=== PATIENT | female | born 1995 | race Caucasian/White ===

== ENCOUNTER → 2021-05-30 13:41 | Outpatient (BNVA) | payer OTHER, SELFPAY | PROVIDERS: PCP Internal Medicine; Visit Provider Advanced Practice Midwife ==

== ENCOUNTER → 2021-06-02 08:54 | Outpatient (BNVA) | payer OTHER, SELFPAY | PROVIDERS: PCP Internal Medicine; Visit Provider Advanced Practice Midwife | DX: Z30.42 Encounter for surveillance of injectable contraceptive (principal) | CPT/HCPCS: 96372 ==

== ENCOUNTER → 2021-08-26 08:54 | Outpatient (BNVA) | payer OTHER, SELFPAY | PROVIDERS: PCP Internal Medicine; Visit Provider Advanced Practice Midwife | DX: Z30.42 Encounter for surveillance of injectable contraceptive (principal) | CPT/HCPCS: 96372; 99211 ==

== ENCOUNTER 2021-10-23 11:18 | Outpatient (REF) | payer OTHER, SELFPAY ==
[2021-10-23 11:51] LABS: MANUAL DIFF FLAG NO
[2021-10-23 12:19] LABS: Basophils Absolute Auto 0.1 X10*3/uL (0.0-0.2); Basophils Percent Auto 0.7 % (0-2); Eosinophils Absolute Auto 0.1 X10*3/uL (0.0-0.4); Eosinophils Percent Auto 1.6 % (0-4); Hematocrit 43.4 % (37.0-47.0); Hemoglobin 14.6 g/dl (12.0-16.0); Imm Gran Abs Auto 0.02 X10*3/uL (0.00-0.03); Imm Gran Pct Auto 0.3 % (0.0-0.4); Lymphocytes Absolute Auto 2.6 X10*3/uL (1.2-4.9); Lymphocytes Percent Auto 34.8 % (20-40); Mean Corpuscular HGB Conc 33.6 g/dl (31.0-35.0); Mean Corpuscular Hemoglobin 31.3 pg (27.0-33.0); Mean Corpuscular Volume 92.9 fL (80.0-98.0); Mean Platelet Volume 8.9 fL (9.4-12.3); Monocytes Absolute Auto 0.7 X10*3/uL (0.1-1.2); Monocytes Percent Auto 9.6 % (2-11); Platelet Count 430 X10*3/uL (160-400); Red Blood Count 4.67 X10*6/uL (4.20-5.50); Red Cell Distribution Width 12.5 % (11.0-16.0); White Blood Count 7.5 X10*3/uL (4.8-10.8)
[2021-10-23 12:49] LABS: Alanine Aminotransferase 38 U/L (0-31); Albumin Level 4.2 g/dL (3.5-5.0); Alkaline Phosphatase 63 U/L (39-117); Anion Gap 10 (12-20); Aspartate Amino Transferase 21 U/L (5-31); Bilirubin Total 0.7 mg/dL (0.0-1.0); Blood Urea Nitrogen 8 mg/dL (9-16); Calcium 9.1 mg/dL (8.4-10.2); Carbon Dioxide 23 mmol/L (22-29); Chloride 110 mmol/L (96-108); Cholesterol 144 mg/dL; Estimated Glomerular Filt Rate > 60; Glucose Fasting 83 mg/dL (60-99); HDL Cholesterol 47 mg/dL; LDL Cholesterol Calculated 87 mg/dl; Potassium 4.3 mmol/L (3.3-5.1); Sodium 139 mmol/L (135-145); Total Protein 6.9 g/dL (6.5-8.0); Triglycerides 52 mg/dL
[2021-10-23 13:04] LABS: Thyroid Stimulating Hormone 1.76 uIU/mL (0.32-4.0)
[2021-10-27 13:21] LABS: Vitamin D 25-OH, D2 5 ng/mL; Vitamin D 25-OH, D3 23 ng/mL; Vitamin D 25-OH, Total 28 ng/mL (30-100)
== END 2021-10-23 11:19 | disposition home or self-care (01) ==
LOC: HO.LAB 11:18
PROVIDERS: PCP Internal Medicine; Visit Provider Internal Medicine
DX: E66.01 Morbid (severe) obesity due to excess calories (principal); E55.9 Vitamin D deficiency, unspecified; E78.5 Hyperlipidemia, unspecified; D64.9 Anemia, unspecified
CPT/HCPCS: 36415; 80053; 80061; 82306; 84443; 85025

== ENCOUNTER → 2021-11-17 09:31 | Outpatient (BNVA) | payer OTHER, SELFPAY | PROVIDERS: Visit Provider Advanced Practice Midwife | DX: Z30.42 Encounter for surveillance of injectable contraceptive (principal) | CPT/HCPCS: 96372; 99211 ==

== ENCOUNTER 2022-02-11 09:29 | Outpatient (REF) | payer OTHER, SELFPAY ==
[2022-02-11 15:15] LABS: CT PCR NOT DETECTED (Not Detect.); NG PCR NOT DETECTED (Not Detect.)
[2022-02-12 11:09] LABS: BV Int Neg Control Negative (Negative); BV Int Pos Control Positive (Positive)
== END 2022-02-11 09:30 | disposition home or self-care (01) ==
LOC: HO.LAB 09:29
PROVIDERS: PCP Internal Medicine; Visit Provider Advanced Practice Midwife
DX: Z01.419 Encounter for gynecological examination (general) (routine) without abnormal findings (principal); Z30.42 Encounter for surveillance of injectable contraceptive; Z20.2 Contact with and (suspected) exposure to infections with a predominantly sexual mode of transmission
CPT/HCPCS: 87480; 87491; 87510; 87591; 87660; 88142; 96372

== ENCOUNTER → 2022-05-06 08:59 | Outpatient (BNVA) | payer OTHER, SELFPAY | PROVIDERS: PCP Internal Medicine; Visit Provider Advanced Practice Midwife | DX: Z30.42 Encounter for surveillance of injectable contraceptive (principal) | CPT/HCPCS: 96372; 99211 ==

== ENCOUNTER 2022-06-08 14:58 | Outpatient (REF) | payer OTHER, SELFPAY ==
[2022-06-10 22:36] LABS: TS Negative Control Passed; TS Panel A 1; TS Panel B 0; TS Positive Control Passed; TSpotTB Negative (Negative)
== END 2022-06-08 14:59 | disposition home or self-care (01) ==
LOC: HO.LAB 14:58
PROVIDERS: PCP Internal Medicine; Visit Provider Internal Medicine
DX: Z11.1 Encounter for screening for respiratory tuberculosis (principal)
CPT/HCPCS: 36415; 86481

== ENCOUNTER 2022-07-10 15:40 | Outpatient (REF) | payer OTHER, SELFPAY ==
--- NOTE | ~2022-07-10 | XR_ITS ---
EXAMINATION: XR ANKLE, RIGHT CLINICAL INFORMATION: Pain COMPARISON: None TECHNIQUE: AP, lateral, and mortise views of the right ankle. FINDINGS: The bones and soft tissues are notable for early calcaneal plantar spurring.. No fracture. Alignment is anatomic. Joint spaces are maintained. No joint effusion. XR/XR ankle RT min 3V IMPRESSION: Calcaneal plantar spurring consistent with heel pain syndrome.
== END 2022-07-10 15:41 | disposition home or self-care (01) ==
LOC: HO.HMGCX 15:40
PROVIDERS: PCP Internal Medicine
DX: M25.571 Pain in right ankle and joints of right foot (principal)
CPT/HCPCS: 73610

== ENCOUNTER → 2022-07-28 09:08 | Outpatient (BNVA) | payer OTHER, SELFPAY | PROVIDERS: PCP Internal Medicine; Visit Provider Advanced Practice Midwife | DX: Z30.42 Encounter for surveillance of injectable contraceptive (principal) | CPT/HCPCS: 96372 ==

== ENCOUNTER 2022-08-28 07:53 | Outpatient (REF) | payer OTHER, SELFPAY | END 2022-08-28 07:54 | disposition home or self-care (01) | LOC: HO.HOSX 07:53 | PROVIDERS: Visit Provider Physician Assistant | DX: Z13.89 Encounter for screening for other disorder (principal) ==

== ENCOUNTER → 2022-10-13 08:57 | Outpatient (BNVA) | payer OTHER, SELFPAY | PROVIDERS: Visit Provider Advanced Practice Midwife | DX: Z30.42 Encounter for surveillance of injectable contraceptive (principal) | CPT/HCPCS: 96372 ==

== ENCOUNTER 2022-10-20 17:00 | Outpatient (RCR) | payer OTHER, SELFPAY ==
--- NOTE | 2022-09-21 17:09 | MHC.PT.EP ---
[facility] [place] Office [place] Office [place] Office [address] Caro [address] [phone] F: [phone] F: [phone] F: [phone] F: [phone] Physical Therapy Plan of Care Date of Evaluation: Date of Surgery: Diagnosis: R ankle sprain Assessment: Patient is pleasant 27 y.o female who was referred to PT by BEL Martinez with Dx of R ankle sprain. Her PT Dx is consistent with R ankle sprain, also involved peroneal tendon and achilles tendon. Her current impairments include; pain, limited ROM, weakness, instability, antalgic gait. Her functional limitations include difficulty with prolonged walking, walking on unlevel surfaces, descending stairs and performing a squat. She will benefit from course of skilled PT to address aforementioned impairments and functional limitations to meet goals. Frequency and Duration: The patient will be seen 1x/week for 4 weeks Short Term Goals: 2 weeks Patient demonstrates consistency and independence with HEP to self manage symptoms, reduce pain 2/10. Patient presents with increased R ankle DF AROM 0 degrees without pain to demonstrates normalized heel to toe gait pattern. Care Home Goals: 4 weeks Patient presents with increased R ankle DF 5 degrees to be able to descend stairs reciprocally. Patient presents with increased R ankle inversion/eversion 5/5 to be able to ambulate uneven surfaces without symptoms. Treatment Plan: Modalities to reduce pain, spasms and effusion. Manual therapy to restore motion and function. Therapeutic exercise to improve strength and flexibility. Neuromuscular re-education for posture and balance. Therapeutic activities to return to functional activities of daily living. Electronically signed by: Marjorie Rashid, PT, DPT Please sign and return to therapist. Thank you for your referral.
--- NOTE | 2022-10-20 17:57 | MHC.PT.DC ---
[facility] [place] Office [place] Office [place] Office [address] [phone] F: [phone] F: [phone] F: [phone] F: [phone] Physical Therapy Discharge Report Diagnosis: R ankle sprain Date of Surgery: Date of Evaluation: 09/21/22 Date of Discharge: 10/20/22 Treatments to Date: 5 Cancellations to Date: No Shows to Date: Discharge Status: Achieved Goals Improved Function Independent with HEP Discharge Summary: Patient presents without R ankle pain only mild to palpation, improved ROM and strength with improved static and dynamic balance with improved ankle stability. She is discharged from PT due to significant improvement. Electronically signed by: Marjorie Rashid, PT, DPT Please sign and return to therapist. Thank you for your referral.
== END 2022-10-20 17:57 | disposition home or self-care (01) ==
LOC: HO.PTCHIC 17:00
PROVIDERS: PCP Internal Medicine; Visit Provider Physician Assistant
DX: S93.401D Sprain of unspecified ligament of right ankle, subsequent encounter (principal)
CPT/HCPCS: 97110; 97112; 97140; 97161

== ENCOUNTER → 2022-12-23 09:58 | Outpatient (BNVA) | payer OTHER, SELFPAY | PROVIDERS: Visit Provider Advanced Practice Midwife | DX: Z13.89 Encounter for screening for other disorder (principal) ==

== ENCOUNTER 2023-01-29 10:02 | Outpatient (REF) | payer OTHER, SELFPAY ==
[2023-01-29 10:59] LABS: Alanine Aminotransferase 47 U/L (0-31); Albumin Level 4.1 g/dL (3.5-5.0); Alkaline Phosphatase 78 U/L (39-117); Anion Gap 12 (12-20); Aspartate Amino Transferase 26 U/L (5-31); Bilirubin Total 0.9 mg/dL (0.0-1.0); Blood Urea Nitrogen 6 mg/dL (9-16); Calcium 9.1 mg/dL (8.4-10.2); Carbon Dioxide 25 mmol/L (22-29); Chloride 109 mmol/L (96-108); Cholesterol 154 mg/dL; Estimated Glomerular Filt Rate > 60; Glucose Fasting 91 mg/dL (60-99); HDL Cholesterol 46 mg/dL; LDL Cholesterol Calculated 99 mg/dl; Potassium 4.5 mmol/L (3.3-5.1); Sodium 141 mmol/L (135-145); Total Protein 6.8 g/dL (6.5-8.0); Triglycerides 45 mg/dL
[2023-01-29 11:14] LABS: Thyroid Stimulating Hormone 1.44 uIU/mL (0.32-4.0)
== END 2023-01-29 10:03 | disposition home or self-care (01) ==
LOC: HO.LAB 10:02
PROVIDERS: PCP Internal Medicine; Visit Provider Internal Medicine
DX: E66.01 Morbid (severe) obesity due to excess calories (principal); E78.5 Hyperlipidemia, unspecified; I10 Essential (primary) hypertension
CPT/HCPCS: 36415; 80053; 80061; 84443

== ENCOUNTER 2023-04-07 10:06 | Outpatient (REF) | payer OTHER, SELFPAY ==
[2023-04-07 14:33] LABS: CT PCR NOT DETECTED (Not Detect.); NG PCR NOT DETECTED (Not Detect.)
[2023-04-08 09:21] LABS: BV Int Neg Control Negative (Negative); BV Int Pos Control Positive (Positive)
== END 2023-04-07 10:07 | disposition home or self-care (01) ==
LOC: HO.LNP 10:06
PROVIDERS: PCP Internal Medicine; Visit Provider Advanced Practice Midwife
DX: Z30.09 Encounter for other general counseling and advice on contraception (principal); Z20.2 Contact with and (suspected) exposure to infections with a predominantly sexual mode of transmission; Z87.42 Personal history of other diseases of the female genital tract
CPT/HCPCS: 0353U; 87480; 87510; 87660

== ENCOUNTER 2023-05-17 14:56 | Outpatient (AMB) | payer BC, SELFPAY ==
[2023-05-17 14:58] VITALS: BP 146/100; BMI 49.9
--- NOTE | 2023-05-17 14:58 | A.OFFPC_ITS ---
Vital Signs 05/17/23 14:58 05/17/23 15:23 Height 5 ft 2 in Weight 273 lb BMI 49.9 BP 146/100 H 145/90 H Blood Pressure Location Lt brachial Lt brachial Position Sitting Sitting Intake Visit Reasons: 4 month f/u bp Intake Note: Patient here for a 4 month follow up BP Hot Packer Required: No Accompanied by: Self / Same As Patient Allergies cat dander Allergy (Verified 05/17/23 15:10) unknown house dust Allergy (Verified 05/17/23 15:10) Itching Medication List - Last Reconciled 05/17/23 by Karen Edwards MD montelukast 10 mg PO DAILY 90 days norethindrone (contraceptive) 0.35 mg PO DAILY spironolactone 25 mg PO DAILY 90 days Tobacco use date assessed: 01/12/23 Dental Screening Dental Screen Date: 05/17/23 Did you have a dental visit in the last 12 months?: Yes Did you have a dental problem in the last 6 months where you did not have access to dental care?: No Was dental information given to patient?: Patient has dentist HPI HPI Comments History of Present Illness Details This is a 28-year-old female with hypertension and morbid obesity that comes today for follow-up on last labs. Labs were within normal limits except mild elevation of liver enzyme which most likely due to fatty liver. Blood pressure elevated and she has not take her spironolactone yet. Blood pressure will be recheck by nurse navigator in about 3 weeks. She is morbidly obese with a BMI of 49.9 and declines weight loss surgery. No chest pain or shortness of breath. [facility] Medical History Depression HTN (hypertension) Left knee pain Morbid obesity Physical exam Right ankle pain Surgical History History of torn meniscus of left knee Family History Mother HTN (hypertension) Maternal Grandfather Cancer Father No problems noted. 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 1. Little interest or pleasure in doing things: not at all 2. Feeling down, depressed, or hopeless: not at all 3. Trouble falling or staying asleep, or sleeping too much: not at all 4. Feeling tired or having little energy: not at all 5. Poor appetite or overeating: not at all 6. Feeling bad about yourself - or that you are a failure or have let yourself or your family down: not at all 7. Trouble concentrating on things, such as reading the newspaper or watching television: not at all 8. Moving or speaking so slowly that other people could have noticed. Or the opposite - being so fidgety or restless that you have been moving around a lot more than usual: not at all 9. Thoughts that you would be better off or of hurting yourself in some way: not at all Total score: 0 Depression Screening Interpretation: Negative 74842 - PHQ-9 Billing: Yes Source: Developed by Drs. Ottoniel Dueñas, Otis Baer and colleagues, with an educational jacob from [employer]. Thrive Questionnaire Date Thrive assessed: 01/12/23 GREG-7 AMB Questionnaire GREG-7 Date GREG - 7 assessed: 01/12/23 Source: Developed by Drs. Ottoniel Dueñas, Otis Baer and colleagues, with an educational jacob from [employer]. Review of Systems Const All systems reviewed & are unremarkable except as noted in HPI and below Eyes Reports no additional complaints, Denies change in vision and Denies other visual disturbances Card Denies chest pain at rest, Denies chest pain with activity, Denies edema, Denies irregular heart rhythm, Denies claudication, Denies dyspnea, Denies dyspnea on exertion, Denies orthopnea, Denies paroxysmal nocturnal dyspnea and Denies slow heart rate Resp Denies cough, Denies dyspnea and Denies dyspnea on exertion GI Denies abdominal pain, Denies change in bowel habits, Denies excessive flatus, Denies nausea and Denies vomiting Denies urinary incontinence, Denies urinary hesitancy and Denies urinary urgency Musc Denies abnormal gait, Denies atrophy, Denies deformity and Denies limited range of motion Skin/Breast Denies bleeding lesions, Denies changing lesions and Denies rash Neuro Denies abnormal gait and Denies lack of coordination Physical exam (Primary Care) Tobacco/Smoking Status: Tobacco use Status Tobacco use date assessed 01/12/23 05/17/23 15:02 Patient Tobacco Use Status Never used Tobacco 05/17/23 15:02 e-Cigarette/Vaping Use Never Used 05/17/23 15:02 Depression Screening Interpretation: Negative Thrive Assessment: Date of Thrive Assessment Date Thrive assessed 01/12/23 05/17/23 15:02 Eyes General: appearance normal, both eyes and all related structures Eyelids: Yes eyelids normal Conjunctivae: conjunctivae normal Neck Neck: Yes normal visual inspection and Yes supple Resp Effort & Inspection: normal respiratory effort Auscultation: clear to auscultation bilaterally Cardio Jugular venous distension: no JVD Rate: regular rate Rhythm: regular rhythm Heart sounds: S1 normal heart sound present and S2 normal heart sound present Extrem General: Yes full ROM Assessment and Plan Assessment & Plan (1) HTN (hypertension): Code(s): I10 - Essential (primary) hypertension Plan: Continue spironolactone. Blood pressure goal is equal or less than 130/80 P (2) Morbid obesity: Code(s): E66.01 - Morbid (severe) obesity due to excess calories Plan: Patient declines weight loss surgery. Start diet and exercise to reach BMI goal less than 30. Coding Level of Care Code Est Pt Level 3 (90829) Diagnoses HTN (hypertension) I10 Morbid obesity E66.01 Time Spent (min) 17
[2023-05-17 15:23] VITALS: BP 145/90
== END 2023-05-17 15:25 | disposition home or self-care (01) ==
PROVIDERS: Visit Provider Internal Medicine
DX: I10 Essential (primary) hypertension (principal); E66.01 Morbid (severe) obesity due to excess calories; Z68.42 Body mass index [BMI] 45.0-49.9, adult
CPT/HCPCS: 99213

== ENCOUNTER 2023-06-24 15:27 | Outpatient (AMB) | payer BC, SELFPAY ==
--- NOTE | 2023-06-24 15:29 | MHC.OFFWIV ---
Intake Vital Signs 06/24/23 15:31 Weight 276 lb BP 126/78 Blood Pressure Location Lt brachial Position Sitting Pulse 93 Pulse Source Pulse Oximeter Pulse Oximetry (%) 98 Oxygen Delivery Method Room Air Intake Visit Reasons: EST/left ear blockage Intake Note: Patient here for left ear pressure. she states she was listening to some videos for work when it started. Patient Tobacco Use Status: Never used Tobacco Allergies cat dander Allergy (Verified 06/24/23 15:33) unknown house dust Allergy (Verified 06/24/23 15:33) Itching Do you need a note to return to daycare/school/sports/work: No HPI HPI Comments History of Present Illness Details 28 year old female presents for ear blockage. Patient states that she feelslike her ears are clogged or blocked no fevers no chills no drainage PFSH Medical History Depression HTN (hypertension) Left knee pain Morbid obesity Physical exam Right ankle pain Surgical History History of torn meniscus of left knee Family History Mother HTN (hypertension) Maternal Grandfather Cancer Father No problems noted. 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 No erythema in the canal obvious effusion present Assessment & Plan Assessment & Plan (1) Middle ear effusion: Code(s): H65.90 - Unspecified nonsuppurative otitis media, unspecified ear Plan left TM intact. No erythema in the canal obvious effusion present. no evidence of infection. Recommend antihistamines to help decrease the effusion Discharge instructions, follow up and treatment are discussed with patient in my usual fashion. Alternatives in treatment are also discussed. The patient will return for worsening symptoms or as needed. Advised that any labs/imaging ordered will be followed up on and contact made if further treatment needed. Counseled that patient's condition may require further evaluation and/or treatment. Symptoms of concern for worsening disorder discussed in detail in my customary manner. Patient does verbalize understanding of the plan, there are no apparent barriers to communication. The patient is given the opportunity to ask questions and have them answered to his/her satisfaction Coding Level of Care Code Est Pt Level 2 (64732) Diagnoses Middle ear effusion H65.90
[2023-06-24 15:31] VITALS: BP 126/78; PULSE 93; O2SAT 98
== END 2023-06-24 15:45 | disposition home or self-care (01) ==
LOC: HO.HMGWI 15:27
PROVIDERS: PCP Internal Medicine; Visit Provider Physician Assistant
DX: H65.90 Unspecified nonsuppurative otitis media, unspecified ear (principal)
CPT/HCPCS: 99212

== ENCOUNTER 2023-12-29 11:51 | Outpatient (AMB) | payer BC, SELFPAY ==
--- NOTE | 2023-12-29 11:53 | AM.OFFWIN_ITS ---
Intake Vital Signs 12/29/23 11:54 Height 5 ft 2 in Weight 271 lb BMI 49.6 BP 140/100 H Blood Pressure Location Lt brachial Position Sitting Pulse 103 H Pulse Source Pulse Oximeter Temp 97.9 F Temp Source Temporal Artery Scan Pulse Oximetry (%) 98 Oxygen Delivery Method Room Air Intake Visit Reasons: EST/168/120 high bp/spike/chest pain (lobby) Intake Note: pt is here today for 168/120 bp and spikes and chest pain started yesterday Patient Tobacco Use Status: Never used Tobacco Allergies cat dander Allergy (Verified 12/29/23 11:54) unknown house dust Allergy (Verified 12/29/23 11:54) Itching Do you need a note to return to daycare/school/sports/work: Yes HPI HPI Comments History of Present Illness Details Patient is a 28yo F with hx of HTN and PCOS who presents with hypertension and chest discomfort Symptom onset yesterday; intermittent She admits to chest pain which is causing anxiety and increase in her BP Was taking midol yesterday for menstrual cramps and initially thought it was due to that She d/c'ed the Midol today but still having symptoms She said anxiety makes it worse (the chest discomfort and her BP readings) Denies similar symptoms like this in past Denies associated cough, congestion or SOB She said she has intermittent burning/pressure pain in center of chest/little L sided No radiation of pain She has taken her BP this am; it was 135/89 and said she felt the pressure in chest and 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 Current occupational exposures/hazards: No Gender identity: Female Cognitive needs: No Hearing needs: No Vision needs: Yes Female Reproductive History Menstrual Age of Menarche: 9 Review of Systems Const Denies body aches, Denies chills and Denies fever(s) Eyes Denies blurry vision ENT Denies otalgia, Denies nasal congestion and Denies sore throat Card Reports chest pain, Reports rapid heart rate and Denies dyspnea Resp Denies cough and Denies dyspnea GI Denies vomiting Physical Exam Vital Signs: Last Vital Signs Temp 97.9 F 12/29/23 11:54 Pulse 103 H 12/29/23 11:54 BP 140/100 H 12/29/23 11:54 Pulse Ox 98 12/29/23 11:54 Oxygen Delivery Method Room Air 12/29/23 11:54 BMI result Body Mass Index 49.6 General: Non-toxic, NAD. Speaking full sentences. Skin: Warm dry throughout Eye: EOMI HENT: Airway patent. Uvula midline. No pharyngeal erythema or edema. No CLINICAL CYTOPATHOLOGIST. Bilateral canals clear. TM non-erythematous, non-bulging. No TM perforation or hemotympanum noted. Respiratory: CTA bilaterally. No wheezes, rales or rhonchi Cardiac: RRR. No murmur MSK: Full ROM extremities. Neurology: A/O x 3. CN 2-12 grossly intact. No aphasia or facial droop. Gait without abnormality Psych: Good mood and affect Assessment & Plan Assessment & Plan (1) HTN (hypertension): Code(s): I10 - Essential (primary) hypertension Qualifiers: Hypertension type: unspecified Qualified Code(s): I10 - Essential (primary) hypertension Plan: Patient seen and evaluated. History obtained and EKG ordered and obtained prior to PE. EKbpm NSR interpretted may be LVH (possible normal variant). No EKG to compare to in system Repeat BP was 150/110. She did not have anxiety which prompted CP/BP elevation and claims that the chest discomfort makes her axious She is on control and is tachycardic but denies SOB or leg pain/hx of DVT Discussed need for labs in ER and she is agreeable Expect called to [place] [facility] She is not driving Patient gave verbal understanding and had no additional questions or concerns at time of discharge All questions answered (2) Chest pain: Code(s): R07.9 - Chest pain, unspecified Qualifiers: Chest pain type: unspecified Qualified Code(s): R07.9 - Chest pain, unspecified Plan see above Orders: Orders AMB EKG-In Office Today I10 - Essential (primary) hypertension Coding Level of Care Code Est Pt Level 4 (41173) Diagnoses Hypertension, unspecified type I10 Hypertension type: unspecified Chest pain, unspecified type R07.9 Chest pain type: unspecified
[2023-12-29 11:54] VITALS: BP 140/100; PULSE 103; TEMP 36.6; O2SAT 98; BMI 49.6
== END 2023-12-29 13:06 | disposition home or self-care (01) ==
PROVIDERS: PCP Internal Medicine; Visit Provider Physician Assistant
DX: I10 Essential (primary) hypertension (principal); R07.9 Chest pain, unspecified
CPT/HCPCS: 93000; 99214

== ENCOUNTER 2023-12-29 12:46 | Emergency (ER) | payer BC, SELFPAY ==
[2023-12-29 12:51] VITALS: BP 151/107; PULSE 108; RESP 20; TEMP 37.1; O2SAT 99; BMI 49.6
--- NOTE | 2023-12-29 12:51 | ED.CHESTPAIN ---
HPI - Chest Pain General Chief Complaint: Chest Pain Stated Complaint: Chest pain/HBP Time Seen by Provider: 12/29/23 17:31 Source: patient Mode of arrival: ambulatory Limitations: no limitations History of Present Illness HPI narrative: Patient with History of borderline hypertension PCOS on spironolactone 25 mg daily does have history of anxiety was not feeling good today having chest tightness checked her blood pressure was 135/to the urgent care have elevated blood pressure on arrival it was 151/107 with pulse rate of 108 patient feels anxious no leg pain Related Data Previous Rx's Medication Instructions Recorded norethindrone (contraceptive) 0.35 0.35 mg PO DAILY #84 tabs 04/07/23 mg tablet montelukast 10 mg tablet 10 mg PO DAILY 90 days #90 tabs 09/19/23 spironolactone 25 mg tablet 25 mg PO DAILY 90 days #90 tabs 10/03/23 Allergies Allergy/AdvReac Type Severity Reaction Status Date / Time cat dander Allergy unknown Verified 12/29/23 12:54 house dust Allergy Itching Verified 12/29/23 12:54 Review of Systems Review of Systems: Yes all other systems are reviewed and are negative [facility] Past Medical History Medical History Right ankle pain Physical exam Morbid obesity Left knee pain Depression HTN (hypertension) Surgical History History of torn meniscus of left knee Family History Family History Mother HTN (hypertension) Maternal Grandfather Cancer Father No problems noted. 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 Oriented X3. No acute distress. anxious Eyes: no pallor ENT: Pharynx normal. Oral Mucosa moist Neck: Normal inspection. Neck supple. CVS: Normal heart rate and rhythm. Pulses normal. Respiratory: No respiratory distress. Equal air entry bilateral, no wheezing/rales/rhonchi Abdomen: Soft and nontender. Bowel sounds are present, Skin: Skin warm and dry. Normal skin color. Normal skin turgor. Extremities: No lower extremity edema. No calf tenderness Neuro: Oriented X 3. No motor deficit. Course Course Course Narrative: This is a rapid medical exam: Additional HPI, ROS, PE not included below will be deferred to primary provider. Midsternal chest pain starting yesterday with hypertension. On antihypertensives, states shes compliant with her medications. BP was high at home. Has her menses but feels like she is bleeding more than usual. Denies SOB, nausea, vomiting, headache, dizziness, weakness. Plan: EKG, Labs Medications Administered Discontinued Medications Generic Name Dose Route Start Last Admin Trade Name Earl PRN Reason Stop Dose Admin Lorazepam 2 mg 12/29/23 17:51 12/29/23 18:04 Lorazepam 1 Mg Tablet PO 12/29/23 17:52 2 mg ONCE ONE Administration Medical Decision Making Medical Decision Making [facility] Narrative: Patient's history of PCOS hypertension on spironolactone 25 mg with increased anxiety and stress OT to have high blood pressure without any end-organ damage blood pressure fluctuating between 150/109... 144/96 patient advised to increase dose on spironolactone to 50 mg daily and follow with PCP Differential Diagnosis Differential Diagnoses: The differential diagnosis associated with the presentation includes Lab Data [facility] Lab Attestation statement: I reviewed the patient's lab results. 12/29/23 13:33 12/29/23 13:33 Labs: Lab Results 03/06/24 Range/Units 13:33 WBC 10.1 (4.8-10.8) X10*3/uL RBC 4.73 (4.20-5.50) X10*6/uL Hgb 14.8 (12.0-16.0) g/dl Hct 43.6 (37.0-47.0) % MCV 92.2 (80.0-98.0) fL MCH 31.3 (27.0-33.0) pg MCHC 33.9 (31.0-35.0) g/dl RDW 12.8 (11.0-16.0) % Plt Count 458 H (160-400) X10*3/uL MPV 8.5 L (9.4-12.3) fL Immature Gran % (Auto) 0.2 (0.0-0.4) % Neut % (Auto) 64.1 (45-73) % Lymph % (Auto) 26.6 (20-40) % Knott % (Auto) 8.2 (2-11) % Eos % (Auto) 0.4 (0-4) % Baso % (Auto) 0.5 (0-2) % Lymph # (Auto) 2.7 (1.2-4.9) X10*3/uL Knott # (Auto) 0.8 (0.1-1.2) X10*3/uL Eos # (Auto) 0.0 (0.0-0.4) X10*3/uL Baso # (Auto) 0.1 (0.0-0.2) X10*3/uL Abs Immat Gran (auto) 0.02 (0.00-0.03) X10*3/uL Absolute Neuts (auto) 6.5 (2.0-8.3) x10*3/uL Absolute Nucleated RBC 0.000 (0.0-0.012) X10*3/uL Nucleated RBC % (auto) 0.0 (0.0-0.2) /100WBC Sodium 138 (135-145) mmol/L Potassium 3.9 (3.3-5.1) mmol/L Chloride 105 (96-108) mmol/L Carbon Dioxide 27 (22-29) mmol/L Anion Gap 10 L (12-20) BUN 8 L (9-16) mg/dL Creatinine 0.73 (0.5-1.4) mg/dL Estim Creat Clear Calc 140.9 Estimated GFR > 60 Random Glucose 96 (60-115) mg/dL Calcium 9.5 (8.4-10.2) mg/dL Total Bilirubin 0.7 (0.0-1.0) mg/dL AST 28 (5-31) U/L ALT 38 H (0-31) U/L Alkaline Phosphatase 67 (39-117) U/L Troponin I High Sens < 2.7 (<3.5-17.0) ng/L Total Protein 7.9 (6.5-8.0) g/dL Albumin 4.4 (3.5-5.0) g/dL Independent Interpretation I performed an independent interpretation of an: EKG Interpretation: Normal sinus rhythm heart rate 95 beats per minute normal interval normal axis no acute ST T wave changes no acute ischemia Discharge Plan Discharge Clinical Impression: HTN (hypertension) Patient Disposition: Home, Self-Care Instructions: Chronic Hypertension (ED) Additional Instructions: Increase the dose of your spironolactone to 50 mg daily Follow-up with your PCP Normal blood pressure should be less than 135/85 Prescriptions: No Action montelukast 10 mg tablet 10 mg PO DAILY 90 Days Qty: 90 1RF spironolactone 25 mg tablet 25 mg PO DAILY 90 Days Qty: 90 0RF norethindrone (contraceptive) 0.35 mg tablet 0.35 mg PO DAILY Qty: 84 4RF Interventions: ED Discharge Assessment Last Done: 12/29/23 19:36 Discharge Date/Time: 12/29/23 19:36
--- NOTE | 2023-12-29 12:53 | ECG_ITS ---
Test Reason : cp Blood Pressure : / mmHG Vent. Rate : 095 BPM Atrial Rate : 095 BPM P-R Int : 132 ms QRS Dur : 086 ms QT Int : 378 ms P-R-T Axes : 043 002 020 degrees QTc Int : 475 ms Normal sinus rhythm Normal ECG No previous ECGs available Referred By: Diana Mirza Electronically Signed By:Jay Villa
[2023-12-29 13:37] LABS: MANUAL DIFF FLAG NO
[2023-12-29 13:46] LABS: Basophils Absolute Auto 0.1 X10*3/uL (0.0-0.2); Basophils Percent Auto 0.5 % (0-2); Eosinophils Percent Auto 0.4 % (0-4); Hematocrit 43.6 % (37.0-47.0); Hemoglobin 14.8 g/dl (12.0-16.0); Imm Gran Abs Auto 0.02 X10*3/uL (0.00-0.03); Imm Gran Pct Auto 0.2 % (0.0-0.4); Lymphocytes Absolute Auto 2.7 X10*3/uL (1.2-4.9); Lymphocytes Percent Auto 26.6 % (20-40); Mean Corpuscular HGB Conc 33.9 g/dl (31.0-35.0); Mean Corpuscular Hemoglobin 31.3 pg (27.0-33.0); Mean Corpuscular Volume 92.2 fL (80.0-98.0); Mean Platelet Volume 8.5 fL (9.4-12.3); Monocytes Absolute Auto 0.8 X10*3/uL (0.1-1.2); Monocytes Percent Auto 8.2 % (2-11); Neutrophils Absolute Auto 6.5 x10*3/uL (2.0-8.3); Neutrophils Percent Auto 64.1 % (45-73); Platelet Count 458 X10*3/uL (160-400); Red Blood Count 4.73 X10*6/uL (4.20-5.50); Red Cell Distribution Width 12.8 % (11.0-16.0); White Blood Count 10.1 X10*3/uL (4.8-10.8)
[2023-12-29 13:55] LABS: Alanine Aminotransferase 38 U/L (0-31); Albumin Level 4.4 g/dL (3.5-5.0); Alkaline Phosphatase 67 U/L (39-117); Anion Gap 10 (12-20); Aspartate Amino Transferase 28 U/L (5-31); Bilirubin Total 0.7 mg/dL (0.0-1.0); Blood Urea Nitrogen 8 mg/dL (9-16); Calcium 9.5 mg/dL (8.4-10.2); Carbon Dioxide 27 mmol/L (22-29); Chloride 105 mmol/L (96-108); Creatinine Clr Calc Pharmacy 140.9; Estimated Glomerular Filt Rate > 60; Glucose Random 96 mg/dL (60-115); Potassium 3.9 mmol/L (3.3-5.1); Sodium 138 mmol/L (135-145); Total Protein 7.9 g/dL (6.5-8.0)
[2023-12-29 14:10] LABS: Troponin-I High Sensitivity < 2.7 ng/L (<3.5-17.0)
[2023-12-29 17:01] VITALS: BP 148/113; PULSE 100; RESP 18; TEMP 37.1; O2SAT 97
[2023-12-29 17:43] VITALS: PULSE 86
[2023-12-29 17:44] VITALS: BP 153/106; PULSE 94; RESP 14; TEMP 37; O2SAT 99
[2023-12-29] MEDS: LORazepam 1 MG TABLET 2 MG PO (18:04)
--- NOTE | 2023-12-29 18:07 | PC.NURSE ---
Patient comes to ER for 8/10 chest pain/tightness that started 2 days ago. Patient reports she is feeling anxious due to elevated blood pressures at home, no known history of hypertension. Patient is alert and oriented, breathing even and unlabored. NS on monitor, vss. MD at bedside.
[2023-12-29 18:58] VITALS: BP 144/96
== END 2023-12-29 19:36 | disposition home or self-care (01) ==
PROVIDERS: Nurse Practitioner Family; Emergency Provider Internal Medicine; PCP Internal Medicine
DX: I10 Essential (primary) hypertension (principal); Z79.899 Other long term (current) drug therapy
CPT/HCPCS: 36415; 80053; 84484; 85025; 93005; 99283; 99285

== ENCOUNTER → 2023-12-29 12:53 | Outpatient (BNV) | payer BC, SELFPAY | PROVIDERS: Emergency Provider Internal Medicine; PCP Internal Medicine; Visit Provider Internal Medicine Cardiovascular Disease | DX: R07.9 Chest pain, unspecified (principal) | CPT/HCPCS: 93010 ==

== ENCOUNTER 2024-01-17 09:01 | Outpatient (AMB) | payer BC, SELFPAY ==
[2024-01-17 09:07] VITALS: BP 148/92; BMI 48.8
--- NOTE | 2024-01-17 09:07 | A.OFFPC_ITS ---
Vital Signs 01/17/24 09:07 01/17/24 09:46 Height 5 ft 2 in Weight 267 lb BMI 48.8 BP 148/92 H 145/90 H Blood Pressure Location Lt brachial Lt brachial Position Sitting Sitting Intake Visit Reasons: pe Intake Note: Patient here for a physical exam Cloth Dyer Required: No Accompanied by: Self / Same As Patient Allergies cat dander Allergy (Verified 01/17/24 09:16) unknown house dust Allergy (Verified 01/17/24 09:16) Itching Medication List - Last Reconciled 01/17/24 by Karen Edwards MD montelukast 10 mg PO DAILY 90 days norethindrone (contraceptive) 0.35 mg PO DAILY spironolactone 50 mg PO DAILY 90 days Tobacco use date assessed: 01/17/24 Dental Screening Dental Screen Date: 01/17/24 Did you have a dental visit in the last 12 months?: No Did you have a dental problem in the last 6 months where you did not have access to dental care?: No Was dental information given to patient?: Patient has dentist HPI HPI Comments History of Present Illness Details This is a 28-year-old female with morbid obesity that comes for her physical exam. Last Pap smear was 2021 and was normal. Blood pressure elevated and will be recheck in 3 weeks by nurse navigator. She does check her blood pressure at home and is usually less than 140/90. She is morbidly obese with a BMI of 48.8 and declines weight loss surgery but will be enrolling in a weight program by her job. Had an episode of chest pain recently in which cardio workup was negative. Chest pain resolved and no shortness of breath. [facility] Medical History Right ankle pain Physical exam Morbid obesity Left knee pain Depression HTN (hypertension) Surgical History History of torn meniscus of left knee Family History (Updated 01/17/24 @ 09:21 by Karen Edwards MD) Mother HTN (hypertension) Maternal Grandfather Cancer Father No problems noted. 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 1. Little interest or pleasure in doing things: not at all 2. Feeling down, depressed, or hopeless: not at all 3. Trouble falling or staying asleep, or sleeping too much: not at all 4. Feeling tired or having little energy: not at all 5. Poor appetite or overeating: not at all 6. Feeling bad about yourself - or that you are a failure or have let yourself or your family down: not at all 7. Trouble concentrating on things, such as reading the newspaper or watching television: not at all 8. Moving or speaking so slowly that other people could have noticed. Or the opposite - being so fidgety or restless that you have been moving around a lot more than usual: not at all 9. Thoughts that you would be better off or of hurting yourself in some way: not at all Total score: 0 Depression Screening Interpretation: Negative Depression Screening Done: Yes 78038 - PHQ-9 Billing: Yes Source: Developed by Drs. Ottoniel Dueñas, Lenore Gongora, Otis Bond and colleagues, with an educational jacob from [employer]. Thrive Questionnaire Date Thrive assessed: 01/17/24 I am a: Patient What is your living situation today?: I have a steady place to live Within the past 12 months, did the food you bought not last and you didn't have the money to get more?: Never true Within the past 12 months, did you worry whether your food would run out before you got money to buy more?: Never true Do you have trouble paying for medicines?: No Do you have trouble getting transportation to medical appointments?: No Do you have trouble paying your heating and electricity bill?: No Do you have trouble taking care of your child, family member or friend?: No Do you have trouble with day-to-day activities such as bathing, preparing meals, shopping, managing finances, etc.?: No Are you currently unemployed and looking for a job?: No Are you interested in more education?: No Please select the resources that you would like help with: None Currently or been in a relationship where the following occur: no concerns reported THRIVE Score: 0 AUDIT C Alcohol Use Questionnaire (AUDIT-C) 1. How often do you have a drink containing alcohol?: Monthly or less 2. How many drinks containing alcohol do you have on a typical day when you are drinking?: 1 or 2 3. How often do you have six or more drinks on one occasion?: Never Total Score: 1 Score Reviewed/Action Taken: No GREG-7 AMB Questionnaire GREG-7 Date GREG - 7 assessed: 01/17/24 Feeling nervous, anxious, or on edge: 1 = Several days Not being able to stop or control worryin = Not at all Worrying too much about different things: 0 = Not at all Trouble relaxin = Not at all Being so restless that it is hard to sit still: 0 = Not at all Becoming easily annoyed or irritable: 0 = Not at all Feeling afraid as if something awful might happen: 0 = Not at all Total GREG-7 score (0-4 normal; 5-9 mild; 10-14 moderate; 15-21 severe): 1 Source: Developed by Drs. Ottoniel Dueñas, Lenore Gongora, Otis Bond and colleagues, with an educational jacob from [employer]. GREG-7 Assessment Billing GREG-7 Assessment Tool: RGEG-7 Assessment 29521 Review of Systems Const All systems reviewed & are unremarkable except as noted in HPI and below Eyes Reports no additional complaints, Denies change in vision and Denies other visual disturbances Card Denies chest pain at rest, Denies chest pain with activity, Denies edema, Denies irregular heart rhythm, Denies claudication, Denies dyspnea, Denies dyspnea on exertion, Denies orthopnea, Denies paroxysmal nocturnal dyspnea and Denies slow heart rate Resp Denies cough, Denies dyspnea and Denies dyspnea on exertion GI Denies abdominal pain, Denies change in bowel habits, Denies excessive flatus, Denies nausea and Denies vomiting Denies urinary incontinence, Denies urinary hesitancy and Denies urinary urgency Musc Denies abnormal gait, Denies atrophy, Denies deformity and Denies limited range of motion Skin/Breast Denies bleeding lesions, Denies changing lesions and Denies rash Neuro Denies abnormal gait, Denies behavioral changes, Denies confusion and Denies lack of coordination Psych Denies behavioral changes and Denies confusion Physical exam (Primary Care) Vital Signs: Last Vital Signs BP 148/92 H 01/17/24 09:07 BMI result Body Mass Index 48.8 Tobacco/Smoking Status: Tobacco use Status Tobacco use date assessed 01/17/24 01/17/24 09:13 Patient Tobacco Use Status Never used Tobacco 01/17/24 09:13 e-Cigarette/Vaping Use Never Used 01/17/24 09:13 PHQ-9: PHQ-9 Score PHQ-9: Total score 0 01/17/24 09:13 Depression Screening Interpretation: Negative Thrive Assessment: Date of Thrive Assessment Date Thrive assessed 01/17/24 01/17/24 09:13 Currently or been in a relationship where the following occur: no concerns reported Const General: No confusion Orientation/consciousness: patient oriented x3 and No confusion HENMT Head: Yes normal to inspection, Yes normocephalic and Yes atraumatic Ears: external ears normal Eyes General: appearance normal, both eyes and all related structures Eyelids: Yes eyelids normal Conjunctivae: conjunctivae normal Neck Neck: Yes normal visual inspection and Yes supple Resp Effort & Inspection: normal respiratory effort Auscultation: clear to auscultation bilaterally Cardio Jugular venous distension: no JVD Rate: regular rate Rhythm: regular rhythm Heart sounds: S1 normal heart sound present and S2 normal heart sound present GI Inspection: Yes normal to inspection Palpation (GI): Soft to palpation and nontender Auscultation: normal bowel sounds Skin General skin exam: no rashes or lesions noted Neuro General: patient oriented x3, no focal motor deficits and No confusion Extrem General: Yes full ROM Psych Appearance: grossly normal Assessment and Plan Assessment & Plan (1) Physical exam: Code(s): Z00.00 - Encounter for general adult medical examination without abnormal findings Plan: Repeat in a year. (2) Morbid obesity: Code(s): E66.01 - Morbid (severe) obesity due to excess calories Plan: I advised to start diet and exercise if she declines weight loss surgery. She will enroll in a weight program by her job. BMI goal is less than 30. Orders: Orders Comprehensive [place]. Panel Fast Today Z00.00 - Encounter for general adult medical examination without abnormal findings Lipid Panel Today E78.5 - Hyperlipidemia, unspecified, Z00.00 - Encounter for general adult medical examination without abnormal findings Coding Level of Care Code Est Pt Prev Care 18-39y(71092) Diagnoses Physical exam Z00.00 Morbid obesity E66.01 Additional Codes GREG-7 Assessment Billing - GREG-7 Assessment Tool: GREG-7 Assessment 64596 ([id number]) Time Spent (min) 32
[2024-01-17 09:46] VITALS: BP 145/90
== END 2024-01-17 09:28 | disposition home or self-care (01) ==
LOC: HO.HMGH 09:01
PROVIDERS: PCP Internal Medicine; Visit Provider Internal Medicine
DX: Z00.00 Encounter for general adult medical examination without abnormal findings (principal); E66.01 Morbid (severe) obesity due to excess calories; Z68.42 Body mass index [BMI] 45.0-49.9, adult
CPT/HCPCS: 99395

== ENCOUNTER 2024-01-17 09:46 | Outpatient (REF) | payer BC, SELFPAY ==
[2024-01-17 11:38] LABS: Alanine Aminotransferase 30 U/L (0-31); Albumin Level 4.2 g/dL (3.5-5.0); Alkaline Phosphatase 68 U/L (39-117); Anion Gap 12 (12-20); Aspartate Amino Transferase 24 U/L (5-31); Blood Urea Nitrogen 10 mg/dL (9-16); Calcium 9.1 mg/dL (8.4-10.2); Carbon Dioxide 24 mmol/L (22-29); Chloride 107 mmol/L (96-108); Cholesterol 140 mg/dL (<200); Estimated Glomerular Filt Rate > 60; Glucose Fasting 88 mg/dL (60-99); HDL Cholesterol 44 mg/dL (>40); LDL Cholesterol Calculated 85 mg/dL (<100); Potassium 4.1 mmol/L (3.3-5.1); Sodium 139 mmol/L (135-145); Total Protein 7.5 g/dL (6.5-8.0); Triglycerides 55 mg/dL (<150)
[2024-01-17 12:21] LABS: Bilirubin Total 0.6 mg/dL (0.0-1.0)
== END 2024-01-17 09:47 | disposition home or self-care (01) ==
LOC: HO.LAB 09:46
PROVIDERS: PCP Internal Medicine; Visit Provider Internal Medicine
DX: Z00.00 Encounter for general adult medical examination without abnormal findings (principal); E78.5 Hyperlipidemia, unspecified
CPT/HCPCS: 36415; 80053; 80061

== ENCOUNTER 2024-04-10 10:10 | Outpatient (AMB) | payer BC, SELFPAY ==
[2024-04-10 10:23] VITALS: BP 118/78; BMI 49.0
--- NOTE | 2024-04-10 10:23 | MHC.OFFVIS ---
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 Information Interpreted: clinical only Financial Representative: Financial Representative Present Allergies cat dander Allergy (Verified 04/10/24 10:25) unknown house dust Allergy (Verified 04/10/24 10:25) Itching Medication List - Last Reconciled 04/10/24 by Nereida Taylor CNM montelukast 10 mg PO DAILY 90 days norethindrone (contraceptive) 0.35 mg PO DAILY spironolactone 50 mg PO DAILY 90 days Is last menstrual period known: Yes Last menstrual period: 03/30/24 Do you need a note to return to daycare/school/sports/work: No HPI HPI MANAGER SPA annual exam: Details: 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 Her last Pap smear was 2 years ago was negative. She has gained a little bit of weight since her last visit. She is very anxious about this exam because she always finds cellophane wrapping examiner exams very painful. She invited her fiance into hold her hand. She says her periods are more less regular. She has a history of increased facial hair obesity abnormal bleeding. She says both I and her primary have talked to her about PCOS. [facility] Medical History Right ankle pain Physical exam Morbid obesity Left knee pain Depression HTN (hypertension) Surgical History History of torn meniscus of left knee Family History Mother HTN (hypertension) Maternal Grandfather Cancer Father No problems noted. 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 Current occupational exposures/hazards: No Gender identity: Female Cognitive needs: No Hearing needs: No Vision needs: Yes Female Reproductive History Menstrual Age of Menarche: 9 Duration of menses: 6-7 days Date of last menstrual period: 03/30/24 control method: pills Total pregnancies: 0 Full term: 0 Date of last pap smear: 02/12/22 (negative) History of abnormal pap smear: No Physical Exam Vital Signs: Last Vital Signs BP 118/78 04/10/24 10:23 BMI result Body Mass Index 49.0 Chest Breast/axilla inspection: normal inspection of the breasts and normal inspection of the axillae Breast/axilla palpation: normal palpation of the breasts and normal palpation of the axillae Other: Secondary to obesity and to patient's clenching of her vagina it was physically not possible to insert Tonia speculum past introitus I was able to insert Q-tips for testing for gonorrhea chlamydia trichomoniasis Gardnerella and Sarah. Patient had her menses last week so there is slight brown tinge to the discharge no abnormality perceived other than patient clenching and obesity Speculum Exam - Vagina: normal appearance of the vagina and other Speculum Exam - Cervix: normal appearance of the cervix and Other cervical findings present (limited views) Bimanual exam- vagina & uterus: other (uterus difficult to assess 2' habitus) Bimanual Exam- Adnexa, other: Other (palpation of adnexae limited 2' habitus) Assessment & Plan Assessment & Plan (1) control counseling: Code(s): Z30.09 - Encounter for other general counseling and advice on contraception Category: Medical (2) History of irregular menstrual cycles: Code(s): Z87.42 - Personal history of other diseases of the female genital tract Category: Medical (3) Vaginismus (not due to a general medical condition): Code(s): F52.5 - Vaginismus not due to a substance or known physiological condition Category: Medical (4) History of abnormal uterine bleeding: Code(s): Z87.42 - Personal history of other diseases of the female genital tract Category: Medical (5) Cervical cancer screening: Comment: 02/11/22 pap= neg Code(s): Z12.4 - Encounter for screening for malignant neoplasm of cervix Category: Medical (6) Morbid obesity: Code(s): E66.01 - Morbid (severe) obesity due to excess calories Category: Medical Plan -----Discussed in this visit the following: healthy balanced diet, regular and consistent exercise, getting recommended health screens, doing the best she can for her particular health concerns, kegel exercises, pap smear screening and followup recommendations, mammography screening and SBE, normal changes in cycles in her life stage--- . I asked the patient's fiancee to leave will explored whether not the patient had ever been sexually abused she says she never has been. Discussed how obesity effects her life and urged looking at it from the health perspective she know she stress eats she has not interested in a weight management referral at this time which I did offer place for her. She has not in please see readiness but her fiance has lost a lot of weight and is now training for [employer] and she is planning to use his plan. Discussed what she has done in the past and what has helped. Discussed that she will be due for Pap smear and actually inserting the speculum to look for her cervix will be necessary next year. Discussed ways of relaxing but also suggest to the losing weight will help in many ways as well. Medications: Refilled norethindrone (contraceptive) 0.35 mg PO DAILY 84 tabs 4RF Coding Level of Care Code Est Pt Prev Care 18-39y(49538) Diagnoses control counseling Z30.09 History of irregular menstrual cycles Z87.42 Vaginismus (not due to a general medical condition) F52.5 History of abnormal uterine bleeding Z87.42 Cervical cancer screening Z12.4 Morbid obesity E66.01
== END 2024-04-10 11:36 | disposition home or self-care (01) ==
LOC: HO.HWSM 10:10
PROVIDERS: PCP Internal Medicine; Visit Provider Advanced Practice Midwife
DX: Z01.419 Encounter for gynecological examination (general) (routine) without abnormal findings (principal); Z30.09 Encounter for other general counseling and advice on contraception; Z87.42 Personal history of other diseases of the female genital tract; F52.5 Vaginismus not due to a substance or known physiological condition; E66.01 Morbid (severe) obesity due to excess calories
CPT/HCPCS: 99395

== ENCOUNTER 2024-04-10 10:10 | Outpatient (REF) | payer BC, SELFPAY ==
[2024-04-11 03:59] LABS: CT PCR NOT DETECTED (Not Detect.); NG PCR NOT DETECTED (Not Detect.)
[2024-04-11 10:52] LABS: Bacterial Vaginosis PCR NEGATIVE (Negative); Candida Group PCR NOT DETECTED (Not Detect); Candida glab krusei PCR NOT DETECTED (Not Detect); Trichomonas vaginalis PCR NOT DETECTED (Not Detect)
== END 2024-04-10 10:11 | disposition home or self-care (01) ==
LOC: HO.LAB 10:10
PROVIDERS: PCP Internal Medicine; Visit Provider Advanced Practice Midwife
DX: Z11.3 Encounter for screening for infections with a predominantly sexual mode of transmission (principal); N89.8 Other specified noninflammatory disorders of vagina
CPT/HCPCS: 0352U; 0353U

== ENCOUNTER 2024-08-02 09:52 | Outpatient (AMB) | payer BC, SELFPAY ==
--- NOTE | 2024-08-02 09:53 | A.OFFPC_ITS ---
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 Accompanied by: Self / Same As Patient Allergies cat dander Allergy (Verified 08/02/24 10:03) unknown house dust Allergy (Verified 08/02/24 10:03) Itching Medication List - Last Reconciled 08/02/24 by Karen Edwards MD montelukast 10 mg PO DAILY 90 days norethindrone (contraceptive) 0.35 mg PO DAILY spironolactone 50 mg PO DAILY 90 days Tobacco use date assessed: 01/17/24 Dental Screening Dental Screen Date: 08/02/24 Did you have a dental visit in the last 12 months?: No Did you have a dental problem in the last 6 months where you did not have access to dental care?: No Was dental information given to patient?: Patient has dentist HPI HPI Comments History of Present Illness Details This is a 29-year-old female with hypertension and morbid obesity that comes today for follow-up on blood pressure. Blood pressure borderline normal to elevated and will be recheck in 3 weeks by nurse navigator. She did took her spironolactone today. She complains of stress at work. Denies any chest pain or shortness on breath. She is morbidly obese with a BMI of 48.8 and was advised to do diet and exercise to reach BMI goal less than 30. [facility] Medical History Right ankle pain Physical exam Morbid obesity Left knee pain Depression HTN (hypertension) Surgical History History of torn meniscus of left knee Family History Mother HTN (hypertension) Maternal Grandfather Cancer Father No problems noted. 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 How many drinks containing alcohol do you have on a typical day when you are drinking?: 1 or 2 3. How often do you have six or more drinks on one occasion?: Never Total Score: 0 GREG-7 AMB Questionnaire GREG-7 Date GREG - 7 assessed: 01/17/24 Source: Developed by Drs. Ottoniel Dueñas, Lenore Gongora, Otis Bond and colleagues, with an educational jacob from [employer]. Review of Systems Const All systems reviewed & are unremarkable except as noted in HPI and below Card Denies chest pain at rest, Denies chest pain with activity, Denies edema, Denies irregular heart rhythm, Denies claudication, Denies dyspnea, Denies dyspnea on exertion, Denies orthopnea, Denies paroxysmal nocturnal dyspnea and Denies slow heart rate Resp Denies cough, Denies dyspnea and Denies dyspnea on exertion Denies urinary incontinence, Denies urinary hesitancy and Denies urinary urgency Musc Denies atrophy, Denies deformity and Denies limited range of motion Physical exam (Primary Care) Vital Signs: Last Vital Signs BP 130/85 08/02/24 10:09 BMI result Body Mass Index 48.8 BMI Assessment/Plan discussion: High BMI High, discussed plan: lifestyle, weight reduction, dietary and physical activity Tobacco/Smoking Status: Tobacco use Status Tobacco use date assessed 01/17/24 08/02/24 09:53 Patient Tobacco Use Status Never used Tobacco 08/02/24 09:53 e-Cigarette/Vaping Use Never Used 08/02/24 09:53 Thrive Assessment: Date of Thrive Assessment Date Thrive assessed 01/17/24 08/02/24 09:53 Resp Effort & Inspection: normal respiratory effort Auscultation: clear to auscultation bilaterally Cardio Jugular venous distension: no JVD Rate: regular rate Rhythm: regular rhythm Heart sounds: S1 normal heart sound present and S2 normal heart sound present Extrem General: Yes full ROM Office Procedures Flu Questionnaire Does the patient have a severe egg allergy?: No Immunizations Fluarix Triv [id number] (PF) 45 mcg (15 mcg x 3)/0.5 mL IM syringe Performing Provider: Karen Edwards MD Performing Location: [facility] [place] [facility] Documented (not given) by: GONZÁLEZ Doe on 08/02/24 09:58 Reason Not Given: Patient Refused Coding Level of Care Code Est Pt Level 3 (46757) Complex EM visit Add On G2211 Diagnoses Hypertension, unspecified type I10 Morbid obesity E66.01 Time Spent (min) 19 Assessment & Plan Assessment & Plan (1) HTN (hypertension): Code(s): I10 - Essential (primary) hypertension Category: Medical Plan: Continue spironolactone. Blood pressure goal is equal or less than 130/80. Recheck blood pressure with nurse navigator in 3 weeks. (2) Morbid obesity: Code(s): E66.01 - Morbid (severe) obesity due to excess calories Category: Medical Plan: Start diet and exercise. BMI goal is less than 30. Orders: Orders Lipid Panel 5 Months E78.5 - Hyperlipidemia, unspecified, Z00.00 - Encounter for general adult medical examination without abnormal findings Comprehensive Met. Panel 5 Months Z00.00 - Encounter for general adult medical examination without abnormal findings Influenza [id number] Immunization Today Z23 - Encounter for immunization
[2024-08-02 09:54] VITALS: BP 146/98; BMI 48.8
[2024-08-02 10:09] VITALS: BP 130/85
== END 2024-08-02 10:13 | disposition home or self-care (01) ==
PROVIDERS: PCP Internal Medicine; Visit Provider Internal Medicine
DX: I10 Essential (primary) hypertension (principal); E66.813 Obesity, class 3; Z68.42 Body mass index [BMI] 45.0-49.9, adult

== ENCOUNTER → 2024-08-02 09:52 | Outpatient (BNVA) | payer BC, SELFPAY | PROVIDERS: PCP Internal Medicine; Visit Provider Internal Medicine | DX: I10 Essential (primary) hypertension (principal); E66.01 Morbid (severe) obesity due to excess calories; Z28.21 Immunization not carried out because of patient refusal | CPT/HCPCS: 90471 ==

== ENCOUNTER → 2024-08-25 09:03 | Outpatient (BNVA) | payer BC, SELFPAY | PROVIDERS: PCP Internal Medicine ==

== ENCOUNTER 2024-11-21 15:29 | Outpatient (REF) | payer BC, SELFPAY ==
[2024-11-21 15:47] LABS: MANUAL DIFF FLAG NO
[2024-11-21 16:28] LABS: Basophils Absolute Auto 0.1 X10*3/uL (0.0-0.2); Basophils Percent Auto 0.7 % (0-2); Eosinophils Absolute Auto 0.1 X10*3/uL (0.0-0.4); Eosinophils Percent Auto 1.3 % (0-4); Hematocrit 42.8 % (37.0-47.0); Hemoglobin 14.1 g/dl (12.0-16.0); Imm Gran Abs Auto 0.02 X10*3/uL (0.00-0.03); Imm Gran Pct Auto 0.2 % (0.0-0.4); Lymphocytes Absolute Auto 3.6 X10*3/uL (1.2-4.9); Lymphocytes Percent Auto 36.4 % (20-40); Mean Corpuscular HGB Conc 32.9 g/dl (31.0-35.0); Mean Corpuscular Hemoglobin 31.3 pg (27.0-33.0); Mean Corpuscular Volume 95.1 fL (80.0-98.0); Mean Platelet Volume 8.9 fL (9.4-12.3); Monocytes Absolute Auto 0.9 X10*3/uL (0.1-1.2); Monocytes Percent Auto 8.8 % (2-11); Neutrophils Absolute Auto 5.1 x10*3/uL (2.0-8.3); Neutrophils Percent Auto 52.6 % (45-73); Platelet Count 494 X10*3/uL (160-400); Red Cell Distribution Width 12.6 % (11.0-16.0); White Blood Count 9.7 X10*3/uL (4.8-10.8)
[2024-11-21 17:07] LABS: Iron 103 mcg/dL (30-160); Percent Iron Saturation 35 % (15-50); Total Iron Binding Capacity 296 mcg/dL (228-428); Unsaturated Iron Binding 193 ug/dL
[2024-11-21 17:22] LABS: Vitamin D 25-OH Total 29.2 ng/mL (>30)
[2024-11-21 17:34] LABS: Folate 7.4 ng/mL (> or = 4.0); Vitamin B12 335 pg/mL (200-900)
[2024-11-28 15:09] LABS: Vitamin B1 14 nmol/L (8-30)
== END 2024-11-21 15:30 | disposition home or self-care (01) ==
LOC: HO.LAB 15:29
PROVIDERS: PCP Internal Medicine; Visit Provider Internal Medicine
DX: D64.9 Anemia, unspecified (principal); E55.9 Vitamin D deficiency, unspecified; E53.8 Deficiency of other specified B group vitamins; E51.9 Thiamine deficiency, unspecified
CPT/HCPCS: 36415; 82306; 82607; 82746; 83540; 84425; 85025

== ENCOUNTER 2025-01-04 10:09 | Outpatient (REF) | payer BC, SELFPAY ==
[2025-01-04 11:29] LABS: Alanine Aminotransferase 26 U/L (0-31); Albumin Level 4.4 g/dL (3.5-5.0); Alkaline Phosphatase 61 U/L (39-117); Anion Gap 10 (12-20); Aspartate Amino Transferase 22 U/L (5-31); Bilirubin Total 0.9 mg/dL (0.0-1.0); Blood Urea Nitrogen 8 mg/dL (9-16); Calcium 9.3 mg/dL (8.4-10.2); Carbon Dioxide 26 mmol/L (22-29); Chloride 109 mmol/L (96-108); Cholesterol 150 mg/dL (<200); Estimated Glomerular Filt Rate > 60; Glucose Random 92 mg/dL (60-115); HDL Cholesterol 51 mg/dL (>40); LDL Cholesterol Calculated 88 mg/dL (<100); Potassium 4.5 mmol/L (3.3-5.1); Sodium 140 mmol/L (135-145); Total Protein 7.9 g/dL (6.5-8.0); Triglycerides 59 mg/dL (<150)
--- OUTSIDE RECORDS SUMMARY | 2025-01-04 12:38 | XMS_ITS ---
Author Name [facility] Organization Unknown Care Team Organization Name Specialty Phone Email Start Date End [facility] 09/08/2024
== END 2025-01-04 10:10 | disposition home or self-care (01) ==
LOC: HO.LAB 10:09
PROVIDERS: PCP Internal Medicine; Visit Provider Internal Medicine
DX: Z00.00 Encounter for general adult medical examination without abnormal findings (principal); E78.5 Hyperlipidemia, unspecified
CPT/HCPCS: 36415; 80053; 80061

== ENCOUNTER 2025-01-17 08:56 | Outpatient (AMB) | payer BC, SELFPAY ==
--- NOTE | 2025-01-17 09:08 | A.OFFPC_ITS ---
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 Accompanied by: Self / Same As Patient Allergies cat dander Allergy (Verified 01/17/25 09:32) unknown house dust Allergy (Verified 01/17/25 09:32) Itching Medication List - Last Reconciled 01/17/25 by Karen Edwards MD montelukast 10 mg PO DAILY 90 days norethindrone (contraceptive) 0.35 mg PO DAILY spironolactone 50 mg PO DAILY 90 days Tobacco use date assessed: 01/17/25 Dental Screening Dental Screen Date: 01/17/25 Did you have a dental visit in the last 12 months?: Yes Did you have a dental problem in the last 6 months where you did not have access to dental care?: No Was dental information given to patient?: Patient has dentist HPI HPI Comments History of Present Illness Details The patient is a 29-year-old female presenting for a physical ex amination. The patient is managing some depressive symptoms, likely linked to the circumstances of the recent accident. The family history denotes essential hypertension on her maternal side and linda betes mellitus in her paternal lineage, including her paternal aunt. There is also a history of paranoid schizophrenia on her paternal side. The patient's medical history includes a left knee torn meniscus. Current medications comprise Singulair, oral contraceptive pills, and spironolactone 50 mg. - Blood pressure is within normal range. - Weight management: 9-pound decrease re ported due to a start of a training program. - Last Pap smear in 2021. - Tetanus vaccine is up-to-date; last ad ministered three years ago. - Excellent cholesterol and normal blood sugar levels reported. - Encouragement and monitoring of mood r elated to recent depressive episode. [facility] Medical History Right ankle pain Physical exam Morbid obesity Left knee pain Depression HTN (hypertension) Surgical History History of torn meniscus of left knee Family History Mother HTN (hypertension) Maternal Grandfather Cancer Father No problems noted. 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 1. Little interest or pleasure in doing things: several days 2. Feeling down, depressed, or hopeless: several days 3. Trouble falling or staying asleep, or sleeping too much: more than half the days 4. Feeling tired or having little energy: more than half the days 5. Poor appetite or overeating: more than half the days 6. Feeling bad about yourself - or that you are a failure or have let yourself or your family down: several days 7. Trouble concentrating on things, such as reading the newspaper or watching television: several days 8. Moving or speaking so slowly that other people could have noticed. Or the opposite - being so fidgety or restless that you have been moving around a lot more than usual: several days 9. Thoughts that you would be better off or of hurting yourself in some way: not at all Total score: 11 Depression Screening Interpretation: Positive Depression Screening Follow-up: Existing condition and Follow-up Visit Requested Depression Screening Done: Yes 51290 - PHQ-9 Billing: Yes Source: Developed by Drs. Ottoniel Dueñas, Lenore Gongora, Otis Bond and colleagues, with an educational jacob from [employer]. Thrive Questionnaire Date Thrive assessed: 01/15/25 I am a: Patient What is your living situation today?: I have a steady place to live Within the past 12 months, did the food you bought not last and you didn't have the money to get more?: Never true Within the past 12 months, did you worry whether your food would run out before you got money to buy more?: Never true Do you have trouble paying for medicines?: No Do you have trouble getting transportation to medical appointments?: No Do you have trouble paying your heating and electricity bill?: No Do you have trouble taking care of your child, family member or friend?: No Do you have trouble with day-to-day activities such as bathing, preparing meals, shopping, managing finances, etc.?: No Are you currently unemployed and looking for a job?: No Are you interested in more education?: Yes Please select the resources that you would like help with: None Currently or been in a relationship where the following occur: I choose not to a nswer THRIVE Score: 0 AUDIT C Alcohol Use Questionnaire (AUDIT-C) 1. How often do you have a drink containing alcohol?: 2-4 times a month 2. How many drinks containing alcohol do you have on a typical day when you are drinking?: 1 or 2 3. How often do you have six or more drinks on one occasion?: Never Total Score: 2 Score Reviewed/Action Taken: No GREG-7 AMB Questionnaire GREG-7 Date GREG - 7 assessed: 01/17/25 Feeling nervous, anxious, or on edge: 3 = Nearly every day Not being able to stop or control worryin = More than half the days Worrying too much about different things: 3 = Nearly every day Trouble relaxin = More than half the days Being so restless that it is hard to sit still: 1 = Several days Becoming easily annoyed or irritable: 1 = Several days Feeling afraid as if something awful might happen: 1 = Several days Total GREG-7 score (0-4 normal; 5-9 mild; 10-14 moderate; 15-21 severe): 13 Source: Developed by Drs. Ottoniel Dueñas, Lenore Gongora, Otis Bond and colleagues, with an educational jacob from [employer]. GREG-7 Assessment Billing GREG-7 Assessment Tool: GREG-7 Assessment 21181 Review of Systems Const All systems reviewed & are unremarkable except as noted in HPI and below Card Denies chest pain at rest, Denies chest pain with activity, Denies edema, Denies irregular heart rhythm, Denies claudication, Denies dyspnea, Denies dyspnea on e xertion, Denies orthopnea, Denies paroxysmal nocturnal dyspnea and Denies slow heart rate Resp Denies cough, Denies dyspnea and Denies dyspnea on exertion GI Denies abdominal pain, Denies change in bowel habits, Denies excessive flatus, Denies nausea and Denies vomiting Denies urinary incontinence, Denies urinary hesitancy and Denies urinary urgency Musc Denies abnormal gait, Denies atrophy, Denies deformity and Denies limited range of motion Skin/Breast Denies bleeding lesions, Denies changing lesions and Denies rash Neuro Denies abnormal gait, Denies behavioral changes and Denies lack of coordination Psych Denies behavioral changes Physical exam (Primary Care) Vital Signs: Last Vital Signs BP 136/78 01/17/25 09:10 BMI result Body Mass Index 47.2 BMI Assessment/Plan discussion: High BMI High, discussed plan: lifestyle, weight reduction, dietary and physical activity Tobacco/Smoking Status: Tobacco use Status Tobacco use date assessed 01/17/25 01/17/25 09:15 Patient Tobacco Use Status Never used Tobacco 01/17/25 09:15 e-Cigarette/Vaping Use Never Used 01/17/25 09:15 PHQ-9: PHQ-9 Score PHQ-9: Total score 11 01/17/25 09:35 Depression Screening Interpretation: Positive Depression Screening Follow-up: Existing condition and Follow-up Visit Requested Thrive Assessment: Date of Thrive Assessment Date Thrive assessed 01/15/25 01/17/25 09:15 Currently or been in a relationship where the following occur: I choose not to answer [facility] Head: Yes normal to inspection, Yes normocephalic and Yes atraumatic Ears: external ears normal Eyes General: appearance normal, both eyes and all related structures Eyelids: Yes eyelids normal Conjunctivae: conjunctivae normal Neck Neck: Yes normal visual inspection and Yes supple Resp Effort & Inspection: normal respiratory effort Auscultation: clear to auscultation bilaterally Cardio Jugular venous distension: no JVD Rate: regular rate Rhythm: regular rhythm Heart sounds: S1 normal heart sound present and S2 normal heart sound present GI Inspection: Yes normal to inspection Palpation (GI): Soft to palpation and nontender Auscultation: normal bowel sounds Skin General skin exam: no rashes or lesions noted Neuro General: no focal motor deficits Extrem General: Yes full ROM Psych Appearance: grossly normal Coding Level of Care Code Est Pt Prev Care 18-39y(72721) Diagnoses Physical exam Z00.00 Morbid obesity E66.01 Additional Codes GREG-7 Assessment Billing - GREG-7 Assessment Tool: GREG-7 Assessment 89138 ([id number]) PHQ-9 - 38924 - PHQ-9 Billing: Yes ([id number]) Time Spent (min) 32 Assessment & Plan Assessment & Plan (1) Physical exam: Code(s): Z00.00 - Encounter for general adult medical examination without abnormal findings Category: Medical (2) Morbid obesity: Code(s): E66.01 - Morbid (severe) obesity due to excess calories Category: Medical Plan Discussions regarding her mental health focus on addressing the situational depressive symptoms possibly related to the recent traumatic experience and other stress factors. It is essential to maintain regular health checks and support, particularly with upcoming significant life events. Patient was informed and verbally consented to the use of an ambient scribe for clinic note documentation during this visit. Patient Instructions: - Report any ongoing depressive symptoms and consider further evaluation if not improving. - Maintain regular follow-ups for health maintenance and any arising concerns. - Encourage communication of any health changes, especially in the context of family planning and upcoming personal events.
[2025-01-17 09:10] VITALS: BP 136/78; BMI 47.2
== END 2025-01-17 09:45 | disposition home or self-care (01) ==
LOC: HO.HMCH 08:57
PROVIDERS: PCP Internal Medicine; Visit Provider Internal Medicine
DX: Z00.00 Encounter for general adult medical examination without abnormal findings (principal); E66.01 Morbid (severe) obesity due to excess calories; Z68.42 Body mass index [BMI] 45.0-49.9, adult

== ENCOUNTER → 2025-01-17 08:56 | Outpatient (BNVA) | payer BC, SELFPAY | PROVIDERS: PCP Internal Medicine; Visit Provider Internal Medicine | DX: Z00.00 Encounter for general adult medical examination without abnormal findings (principal); E66.01 Morbid (severe) obesity due to excess calories; Z68.42 Body mass index [BMI] 45.0-49.9, adult | CPT/HCPCS: 96127 ==

== ENCOUNTER 2025-04-10 11:05 | Outpatient (AMB) | payer BC, SELFPAY ==
[2025-04-10 11:07] VITALS: BP 134/90; PULSE 96; TEMP 37.2; O2SAT 98; BMI 47.7
--- NOTE | 2025-04-10 11:07 | MHC.OFFWIV ---
Intake Vital Signs 04/10/25 11:07 Height 5 ft 2 in Weight 261 lb BMI 47.7 BP 134/90 H Blood Pressure Location Lt brachial Position Sitting Pulse 96 Pulse Source Pulse Oximeter Temp 98.9 F Temp Source Oral Pulse Oximetry (%) 98 Oxygen Delivery Method Room Air Intake Visit Reasons: EP pain on LT ear Intake Note: PATIENT PRESENTS WITH LEFT EAR PAIN TIMES 3 DAYS Patient Tobacco Use Status: Never used Tobacco Allergies cat dander Allergy (Verified 04/10/25 11:15) unknown house dust Allergy (Verified 04/10/25 11:15) Itching Do you need a note to return to daycare/school/sports/work: No HPI HPI Comments History of Present Illness Details History of Present Illness - The patient is a 30-year-old female presenting with left ear pain. - Symptoms began three days ago with pain primarily within the ear, exacerbated by touch. - Patient historically experiences sinus issues but reports no concurrent cold or systemic symptoms. - Manipulation with warm water was attempted without significant relief. - She states that it hurts to touch her left ear. - She denies fever, chills, BAINS, congestion, discharge, sore throat, runny nose, sinus pain, or hearing loss. Physical Exam General: Cooperative, healthy appearing, comfortable, no acute distress and well developed Head: Normal to inspection Ears: Hearing grossly normal bilaterally. Outer ear canal is erythematous and swollen with two small pimples present in the left ear canal. Nose: Normal external nose present Neck: Normal visual inspection and Yes full ROM. No lymphadenopathy noted. Respiratory: Normal respiratory effort and able to speak in complete sentences. Clear to auscultation bilaterally Cardiovascular: Regular rate and rhythm. Normal S1 and S2 Skin: No rashes or lesions noted Patient was informed and verbally consented to the use of an ambient scribe for clinic note documentation during this visit. [facility] Medical History Right ankle pain Physical exam Morbid obesity Left knee pain Depression HTN (hypertension) Surgical History History of torn meniscus of left knee Family History Mother HTN (hypertension) Maternal Grandfather Cancer Father No problems noted. 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 Current occupational exposures/hazards: No Gender identity: Female Cognitive needs: No Hearing needs: No Vision needs: Yes Female Reproductive History Menstrual Age of Menarche: 9 Review of Systems Const All systems reviewed & are unremarkable except as noted in HPI and below Physical Exam Vital Signs: Last Vital Signs Temp 98.9 F 04/10/25 11:07 Pulse 96 04/10/25 11:07 BP 134/90 H 04/10/25 11:07 Pulse Ox 98 04/10/25 11:07 Oxygen Delivery Method Room Air 04/10/25 11:07 BMI result Body Mass Index 47.7 Assessment & Plan Assessment & Plan (1) Otitis externa: Code(s): H60.90 - Unspecified otitis externa, unspecified ear Qualifiers: Chronicity: acute Laterality: left Otitis externa type: diffuse Qualified Code(s): H60.312 - Diffuse otitis externa, left ear Plan Most likely OE vs cellulitis Plan - Initiate treatment with prescribed ear drops to address the infection of the external ear canal - Avoid Q-tip use in the ears. - Tylenol or Motrin as needed for pain. - Provide guidance on the controlled use of warm water and a Q-tip as an optional self-care measure to manage symptoms and improve comfort. Medications: New [id number]-HQ 3.5-10,000-1 mg/mL-unit/mL-% 4 drps otic (ear) left Q8H 10 days 10 mL 0RF Coding Level of Care Code Est Pt Level 3 (28259) Diagnoses Acute diffuse otitis externa of left ear H60.312 Chronicity: acute Laterality: left Otitis externa type: diffuse
== END 2025-04-10 12:14 | disposition home or self-care (01) ==
PROVIDERS: PCP Internal Medicine; Visit Provider Physician Assistant Medical
DX: H60.312 Diffuse otitis externa, left ear (principal)

== ENCOUNTER → 2025-04-10 11:05 | Outpatient (BNVA) | payer BC, SELFPAY | PROVIDERS: PCP Internal Medicine; Visit Provider Physician Assistant Medical | DX: Z13.89 Encounter for screening for other disorder (principal) ==

== ENCOUNTER 2025-04-25 07:50 | Outpatient (AMB) | payer BC, SELFPAY ==
--- OUTSIDE RECORDS SUMMARY | 2025-04-25 07:53 | XMS_ITS ---
Author Name [facility] Organization Unknown Care Team Organization Name Specialty Phone Email Start Date End [facility] te [facility] the [employer] ([facility] 09/08/2024
[2025-04-25 08:01] VITALS: BP 124/70; BMI 48.3
--- NOTE | 2025-04-25 08:01 | MHC.OFFVIS ---
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 Using vaginal dilators over the last year have helped. Current POP user, missed pills around a month ago had breakthrough bleeding, restarted now on track, UPT is negative today. History of hypertension. Newly . She denies vaginal itching or irritation. STI screening offered; she declines. She denies any contraindications to control such as: migraines with aura, history of DVT or pulmonary emboli, liver disease, thrombolic disorders, Lupus, +PENNY, breast cancer, or smoking. 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 Denies family history of breast, ovarian or colon cancer. Last pap smear 2021, negative. [facility] Medical History (Updated 04/25/25 @ 10:57 by Michelle Person CNM) History of abnormal uterine bleeding Right ankle pain Physical exam Morbid obesity Left knee pain Depression HTN (hypertension) Surgical History History of torn meniscus of left knee Family History Mother HTN (hypertension) Maternal Grandfather Cancer Father No problems noted. 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 Current occupational exposures/hazards: No Gender identity: Female Cognitive needs: No Hearing needs: No Vision needs: Yes Female Reproductive History Menstrual Age of Menarche: 9 Duration of menses: 6-7 days Date of last menstrual period: 03/24/25 control method: pills Total pregnancies: 0 Date of last pap smear: 02/11/22 (negative pap smear ) History of abnormal pap smear: No History of STI: No Review of Systems Const All systems reviewed & are unremarkable except as noted in HPI and below Reports as per HPI Eyes Reports no additional complaints ENT Reports no additional complaints Card Reports no additional complaints Resp Reports no additional complaints GI Reports as per HPI and Reports no additional complaints Reports as per HPI Musc Reports no additional complaints Skin/Breast Reports as per HPI Neuro Reports no additional complaints Psych Reports no additional complaints Endo Reports no additional complaints John/Lymph Reports no additional complaints Aller/Immun Reports no additional complaints Physical Exam Vital Signs: Last Vital Signs BP 124/70 04/25/25 08:01 BMI result Body Mass Index 48.3 Const General: cooperative, healthy appearing, no acute distress, well developed and alert Orientation/consciousness: patient oriented x3 HEENT Head: Yes normal to inspection Eyes General: appearance normal, both eyes and all related structures Neck Neck: Yes normal visual inspection Thyroid: Thyroid normal Chest Chest palpation & inspection: normal inspection of the chest and other (no puckering, dimpling, peau de orange, retraction, discharge, masses) Breast/axilla inspection: normal inspection of the breasts Breast/axilla palpation: normal palpation of the breasts Resp Effort & Inspection: normal respiratory effort GI Inspection: Yes normal to inspection Palpation (GI): Soft to palpation Rectal Exam - Female: deferred General: Yes bladder normal to palpation External Female Exam: normal external appearance and normal appearance of the urethra Speculum Exam - Vagina: normal appearance of the vagina, normal palpation and normal vaginal discharge Speculum Exam - Cervix: normal appearance of the cervix and normal palpation Bimanual exam- vagina & uterus: normal bimanual exam, normal palpation, uterine size normal, bladder normal to palpation, normal palpation and non-tender Bimanual Exam- Adnexa, other: no masses Skin General skin exam: no rashes or lesions noted Rashes: no rashes Neuro General: patient oriented x3 Cognition (Neuro): normal cognition Extrem General: Yes normal to inspection Psych Attitude: cooperative Thought process: Normal thought process present Results AMB Test Urine AMB Test Urine Negative Last Edit by Tianna Peterson LPN on 04/25/25 08:18 Results Reviewed Results Reviewed: Laboratory Last Values Tst Clinic Negative 04/25/25 08:18 Assessment & Plan Assessment & Plan (1) Encounter for well woman exam with routine gynecological exam: Code(s): Z01.419 - Encounter for gynecological examination (general) (routine) without abnormal findings Category: Medical Plan: Discussed: Current recommendations for pap smears per ASCCP guidelines. Breast awareness and periodic breast exams. Maintain a healthy lifestyle including a well balanced diet and routine exercise. Information provided on pelvic floor therapy-booklet dispensed, she plans to review, advised to call if there is desire to pursue. control hormone use warnings: go to ER if and loss of vision, blindness, severe headache, chest pain or difficulty breathing, severe abdominal pain, or any pain or swelling in an extremity. Patient verbalizes understanding and agrees to the plan of care. She was given opportunity to ask questions and all questions were answered to the best of my ability. RTO in one year for annual metal ceiling builder examination. This note is constructed using voice recognition software. While every effort has been made to ensure accuracy, exercise instruct errors may have been included. (2) HTN (hypertension): Code(s): I10 - Essential (primary) hypertension Category: Medical Qualifiers: Hypertension type: unspecified Qualified Code(s): I10 - Essential (primary) hypertension Plan Follow up with PCP regarding hypertension. Orders: Orders Pap Smear Today Z12.4 - Encounter for screening for malignant neoplasm of cervix Medications: Refilled norethindrone (contraceptive) 0.35 mg PO DAILY 84 tabs 4RF Coding Level of Care Code Est Pt Prev Care 18-39y(47214) Diagnoses Encounter for well woman exam with routine gynecological exam Z01.419 Hypertension, unspecified type I10 Hypertension type: unspecified
== END 2025-04-25 08:44 | disposition home or self-care (01) ==
LOC: HO.HWS 07:51
PROVIDERS: PCP Internal Medicine; Visit Provider Advanced Practice Midwife
DX: Z01.419 Encounter for gynecological examination (general) (routine) without abnormal findings (principal); I10 Essential (primary) hypertension
CPT/HCPCS: 99395; 99459

== ENCOUNTER 2025-04-25 07:50 | Outpatient (REF) | payer BC, SELFPAY | END 2025-04-25 07:51 | disposition home or self-care (01) | LOC: HO.LNP 07:50 | PROVIDERS: PCP Internal Medicine; Visit Provider Advanced Practice Midwife | DX: Z12.4 Encounter for screening for malignant neoplasm of cervix (principal) | CPT/HCPCS: 87626; 88175 ==